=== PATIENT | male | born 2000 | race Caucasian/White ===

== ENCOUNTER 2023-02-06 00:12 | Emergency (ER) | payer BC, SELFPAY ==
[2023-02-06 00:21] VITALS: BMI 38.3
[2023-02-06 00:29] VITALS: BP 141/87; PULSE 86; RESP 16; TEMP 36.8; O2SAT 98
--- NOTE | 2023-02-06 01:20 | XRR_ITS ---
PROCEDURE INFORMATION: Exam: XR Lumbosacral Spine Exam date and time: 02/06/2023 1:24 AM Age: 22 years old Clinical indication: Patient HX: C/O low back pain TECHNIQUE: Imaging protocol: Radiologic exam of the lumbosacral spine. Views: 2 or 3 views. COMPARISON: No relevant prior studies available. FINDINGS: Bones/joints: There is mild anterior wedge deformity of the superior endplates of T12 and L1 vertebral bodies. Soft tissues: Unremarkable. XR/XR lumbar spine 2-3V* [id number] IMPRESSION: Mild anterior wedge deformity of the superior endplates T12 and L1 bodies that appear chronic.
--- NOTE | 2023-02-06 01:30 | ED_ITS ---
HPI - Back Pain/Injury General: Chief Complaint: Back Pain/Injury Stated Complaint: Both Knee Pain Time Seen by Provider: 02/06/23 00:45 History of Present Illness: Patient presents to the ER with complaints of low back pain. Patient states about 1-1/2 weeks ago he was bending over picking up a mat and felt a pop. Patient states his pain seems to be worse at night. He called Dr. Richey his PCP and has appointment for Thursday. He does take Tylenol and it does help. The pain sometimes runs down his right leg. Sometimes his legs are little weaker than normal. Patient does have dwarfism. The only surgery the patient has had his ear tubes. Patient does not have a an orthopedic doctor. Review of Systems General: Reports: 10 or more systems reviewed and unremarkable except in HPI and below PFSH ED PFSH: Medical History Dwarfism History of ear infection Surgical History Hx of adenoidectomy Hx of tympanostomy tubes Physical Exam Const: COMMON NORMALS: no acute distress, average body habitus, patient oriented x3, no limitations, healthy appearing, alert and well nourished HENMT: COMMON NORMALS: normocephalic, atraumatic, hearing grossly normal bilaterally, external ears normal, Normal external nose present, moist oral mucous membranes and oropharynx normal HEAD & SCALP: normocephalic and atraumatic NOSE: Normal external nose present EXTERNAL EAR: Yes external ears normal Neck/C-Spine: COMMON NORMALS: no JVD Chest: COMMONS NORMALS: normal inspection of the chest and normal palpation of entire chest wall Resp: COMMON NORMALS: normal respiratory effort, No retractions, No use of accessory muscles and clear to auscultation bilaterally AUSCULTATION: clear to auscultation bilaterally Cardio: COMMON NORMALS: no JVD, regular rate, regular rhythm, S1 normal heart sound present, S2 normal heart sound present, No gallops present (Cardio), No clicks present (Cardio), No murmurs present (Cardio) and No rub (Cardio) RATE: regular rate RHYTHM: regular rhythm HEART SOUNDS: S1 normal heart sound present and S2 normal heart sound present GI: COMMON NORMALS: Normal to inspection, nondistended, normoactive bowel sounds present, Soft to palpation, non-tender, No hepatosplenomegaly present and no masses PALPATION: Yes Soft to palpation and Yes No hepatosplenomegaly present Neuro: COMMON NORMALS: patient oriented x3 SENSORIUM/ORIENTATION: Yes alert Course Vital Signs: Vital signs: Vital Signs Temperature 98.3 F 02/06/23 00:29 Pulse Rate 75 02/06/23 01:40 Respiratory Rate 18 02/06/23 01:40 Blood Pressure 141/87 02/06/23 00:29 Pulse Oximetry 95 02/06/23 01:40 Oxygen Delivery Me thod Room Air 02/06/23 01:40 MDM - Back Pain/Injury Medical Decision Making Patient x-rays done which showed mild anterior wedge deformity of the endplates of T12 and L1. With patient and his family member they will follow-up with their PCP and be referred to a neurosurgeon in [place]. Patient be discharged from the ER. Patient declined any pain medicine at this time. Differential Diagnosis Likely strain of lumbar region; Unlikely lumbar radiculopathy, sciatica, renal colic, pyelonephritis, thoracic back pain, AAA or discitis Medical Records I reviewed the patient's medical records. Labs I reviewed the patient's lab results. Radiology Impressions Lumbar Spine X-Ray 02/06/23 01:20 IMPRESSION: Mild anterior wedge deformity of the superior endplates T12 and L1 bodies that appear chronic. All radiology interpretation(s) finalized by discharge Discharge Plan Discharge Patient Disposition: Home Clinical Impression: Muscle weakness Low back pain Qualifiers: Chronicity: acute Back pain laterality: unspecified Sciatica presence: unspecified whether sciatica present Qualified Code(s): M54.50 - Low back pain, unspecified Closed wedge compression fracture of T12 vertebra Qualifiers: Encounter type: initial encounter Qualified Code(s): S22.080A - Wedge co mpression fracture of T11-T12 vertebra, initial encounter for closed fracture Closed compression fracture of L1 vertebra Qualifiers: Encounter type: initial encounter Qualified Code(s): S32.010A - Wedge compression fracture of first lumbar vertebra, initial encounter for closed fracture Condition: Stable Prescriptions: No Action No Known Home Medications Discharge Orders: Discharge ED (Routine); Ordered 02/06/23 Ordered By: Neri Oglesby Referrals: Hugh Rodrigues MD [Primary Care Provider] - Patient Instructions: Fractures - Compression, Acute Low Back Pain (ED), Weakness (ED) Activity Restrictions/Additional Instructions: please follow-up with Dr. Rodrigues and Dr. Hodge's office as we talked. You may benefit from a referral to the neurosurgeon in [place]. Coding Level of Care Code ED Retirement Benefits Specialist for Mariam Guerrero
[2023-02-06 01:40] VITALS: PULSE 75; RESP 18; O2SAT 95
[2023-02-06 03:05] VITALS: PULSE 84; RESP 18; O2SAT 98
== END 2023-02-06 03:12 | disposition home or self-care (01) ==
PROVIDERS: Emergency Provider Emergency Medicine; PCP Family Medicine
DX: S22.080A Wedge compression fracture of T11-T12 vertebra, initial encounter for closed fracture (principal); S32.010A Wedge compression fracture of first lumbar vertebra, initial encounter for closed fracture; M62.81 Muscle weakness (generalized); E34.328 Other genetic causes of short stature; X50.1XXA Overexertion from prolonged static or awkward postures, initial encounter
CPT/HCPCS: 72100; 99283

== ENCOUNTER 2024-02-02 01:30 | Emergency (ER) | payer BC, SELFPAY ==
[2024-02-02 02:02] VITALS: BP 158/104; PULSE 105; RESP 18; TEMP 36.9; O2SAT 97; BMI 33.7
--- NOTE | 2024-02-02 02:44 | ED_ITS ---
HPI - Extremity Problem General: Chief complaint: Extremity Problem,Nontraumatic Stated complaint: right knee pain, lower back pain Time Seen by Provider: 02/02/24 02:34 History of Present Illness: Presents to the ER with right knee pain on the kneecap. Patient scheduled an urgent week and has pain ever since. Patient is able ambulate. Pain intermittently radiates up into the low back of the posterior leg. This is different than his previous low back pain that radiated from the back down to the knee. Patient has been using [id number] Tylenol and Motrin has seemed to help. Related Data Previous Rx's Medication Instructions Recorded carbamide peroxide 6.5 % ear drops 5 drp otic (ear) DAILY 4 days #15 10/08/23 (Debrox) mL cefdinir 300 mg capsule 300 mg PO BID 5 days #10 caps 10/08/23 meloxicam 15 mg tablet 15 mg PO DAILY #14 tabs 02/02/24 Allergies Allergy/AdvReac Type Severity Reaction Status Date / Time amoxicillin Allergy Intermediate rash Verified 10/08/23 16:24 Review of Systems General: Reports: 10 or more systems reviewed and unremarkable except in HPI and below PFSH ED PFSH: Medical History History of ear infection Dwarfism Surgical History Hx of adenoidectomy Hx of tympanostomy tubes Social History Smoking and tobacco/nicotine status: unknown if used tobacco/nicotine Physical Exam Const: COMMON NORMALS: no acute distress, average body habitus, patient oriented x3, no limitations, healthy appearing, alert and well nourished HENMT: COMMON NORMALS: normocephalic, atraumatic, hearing grossly normal bilaterally, external ears normal, Normal external nose present and moist oral mucous membranes HEAD & SCALP: normocephalic and atraumatic NOSE: Normal external nose present EXTERNAL EAR: Yes external ears normal Neck/C-Spine: COMMON NORMALS: no JVD Chest: COMMONS NORMALS: normal inspection of the chest and normal palpation of entire chest wall Resp: COMMON NORMALS: normal respiratory effort, No retractions, No use of accessory muscles and clear to auscultation bilaterally AUSCULTATION: clear to auscultation bilaterally Cardio: COMMON NORMALS: no JVD, regular rate, regular rhythm, S1 normal heart sound present, S2 normal heart sound present, No gallops present (Cardio), No clicks present (Cardio), No murmurs present (Cardio) and No rub (Cardio) RATE: regular rate RHYTHM: regular rhythm HEART SOUNDS: S1 normal heart sound present and S2 normal heart sound present GI: COMMON NORMALS: Normal to inspection, nondistended, normoactive bowel sounds present, Soft to palpation, non-tender, No hepatosplenomegaly present and no masses PALPATION: Yes Soft to palpation and Yes No hepatosplenomegaly present Extremity: NARRATIVE EXTREMITY EXAM: Negative pain with palpation right knee, full range of motion, no obvious crepitus deformity Neuro: COMMON NORMALS: patient oriented x3 SENSORIUM/ORIENTATION: Yes alert Course Vital Signs: Vital signs: Vital Signs Temperature 98.4 F 02/02/24 02:02 Pulse Rate 105 H 02/02/24 02:02 Respiratory Rate 18 02/02/24 02:02 Blood Pressure 158/104 02/02/24 02:02 Pulse Oximetry 97 02/02/24 02:02 Oxygen Delivery Me thod Room Air 02/02/24 02:02 MDM - Extremity (Nontraumatic) Medical Decision Making Patient appears to have overuse syndrome her right knee, we will prescribe the p atient Mobic and give him 1 week off of work at his request. Medical Records I reviewed the patient's medical records. Lab Data I reviewed the patient's lab results. No radiology studies performed this visit Discharge Plan Discharge Patient Disposition: Home Clinical Impression: Acute pain of right knee Condition: Stable Prescriptions: New meloxicam 15 mg tablet 15 mg PO DAILY Qty: 14 0RF No Action cefdinir 300 mg capsule 300 mg PO BID 5 Days Qty: 10 0RF Debrox 6.5 % drops 5 drp otic (ear) DAILY 4 Days Qty: 15 0RF Discharge Orders: Discharge ED (Routine); Ordered 02/02/24 Ordered By: Neri Oglesby Referrals: Hugh Rodrigues MD [Primary Care Provider] - 1 week Patient Instructions: Knee Pain (ED) Activity Restrictions/Additional Instructions: Meloxicam is been prescribed she has an anti-inflammatory that is 1 pill once a day. Please take it as directed. Please try to limit the use of the knee for the next week. Please follow-up with your PCP within the next week as needed. Stand Alone Forms: Work/School Release Coding Level of Care Code ED Maintenance Service Dispatcher for Mariam Guerrero
[2024-02-02] MEDS: meloxicam 7.5 mg tablet 15 MG PO (03:08)
[2024-02-02 03:17] VITALS: BP 143/98; PULSE 108; O2SAT 95
== END 2024-02-02 03:18 | disposition home or self-care (01) ==
PROVIDERS: Emergency Provider Emergency Medicine; PCP Family Medicine
DX: M25.561 Pain in right knee (principal)
CPT/HCPCS: 99283

== ENCOUNTER 2024-02-02 13:43 | Emergency (ER) | payer BC, SELFPAY ==
--- NOTE | 2024-02-02 13:45 | XR_ITS ---
WS: [id number] Exam: XR knee RT 3V* [id number] Date/Time of Exam: 02/02/2024 2:05 PM Reason For Exam: pain No acute fracture or dislocation. The joint compartments are preserved. There is bowing of the fibula . Anomalous bone formation of the distal femur and tibial plateaus. XR/XR knee RT 3V* [id number] IMPRESSION: 1. No fracture identified. 2. 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
[2024-02-02 13:57] VITALS: BP 156/89; PULSE 110; RESP 16; TEMP 36.6; O2SAT 98
--- NOTE | 2024-02-02 15:05 | ED_ITS ---
HPI - Extremity Problem General: Chief complaint: Extremity Problem,Nontraumatic Stated complaint: Right knee pain Time Seen by Provider: 02/02/24 14:13 Source: patient and family Mode of arrival: ambulatory Limitations: no limitations History of Present Illness: Patient is a 23-year-old male with a history of dwarfism here along with presumably his mother and father for continued evaluation of right knee pain. He was seen earlier this morning/yesterday for same complaint. Patient states knee pain started following a concert out of town. Patient states he did dance at the concert but does not ever remember injuring the knee but states he noticed pain starting when he got back to his hotel room. Mother feels like he might be going through a growth spurt with his dwarfism as he had similar symptoms a year or so ago that was related to this. He has not noticed any swelling to the extremity or knee. No redness or warmth. He is not having any calf pain. Patient does have some somewhat chronic lower back pain but he is not complaining of pain here today or radicular symptoms. Patient states he is not having any knee pain at rest and only has pain with ambulation. MD Complaint: joint pain Onset (ago): day(s) Pain Consistency: constant Location: right and knee Radiation: none Relieving factors: immobilization Exacerbating factors: weight bearing and walking Associated symptoms: Reports no associated symptoms; Deny chest pain or fever(s) Related Data Previous Rx's Medication Instructions Recorded carbamide peroxide 6.5 % ear drops 5 drp otic (ear) DAILY 4 days #15 10/08/23 (Debrox) mL cefdinir 300 mg capsule 300 mg PO BID 5 days #10 caps 10/08/23 cyclobenzaprine 10 mg tablet 10 mg PO TID #14 tabs 02/02/24 meloxicam 15 mg tablet 15 mg PO DAILY #14 tabs 02/02/24 tramadol 50 mg tablet 50 mg PO Q6H PRN pain #14 tabs 02/02/24 Allergies Allergy/AdvReac Type Severity Reaction Status Date / Time amoxicillin Allergy Intermediate rash Verified 10/08/23 16:24 Review of Systems Const: Denies: fever(s), chills, body aches, fatigue or malaise Card: Denies: chest pain Resp: Denies: dyspnea Musc: Reports: joint pain (R knee); Denies: back pain, extremity pain, extremity swelling, joint swelling, joint warmth, joint stiffness or limited range of motion Neuro: Reports: difficulty walking (secondary to R knee pain); Denies: numbness in extremities, weakness in extremities or sensory changes PFSH ED PFSH: Medical History History of ear infection Dwarfism Surgical History Hx of adenoidectomy Hx of tympanostomy tubes Social History Smoking and tobacco/nicotine status: unknown if used tobacco/nicotine Physical Exam Const: COMMON NORMALS: no acute distress, patient oriented x3, no limitations, alert and well nourished GENERAL APPEARANCE: cooperative ORIENTATION/CONSCIOUSNESS: Yes awake, Yes oriented to person, Yes oriented to place and Yes oriented to time Extremity: COMMON NORMALS: normal to inspection, capillary refill normal and no calf tenderness GENERAL: Yes normal exam except as noted RIGHT LOWER EXTREMITY: Yes knee joint Right knee: Yes ROM (normal) and Yes neurovascular exam (normal) OTHER: while patient seated, I am able to perform full range of motion as well as varus and valgus stresses to the knee without eliciting any discomfort; the knee is not swollen or erythematous; no patellar subluxations; he has no popliteal discomfort or pain into his calf or swelling here; extremity is neurovascularly intact he complaints of patellar discomfort while bearing weight on the extremity; can ambulate with a walker Neuro: COMMON NORMALS: patient oriented x3, moves all extremities, no focal motor deficits and no sensory deficits noted SENSORIUM/ORIENTATION: Yes alert, Yes oriented to person, Yes oriented to place and Yes oriented to time Course Vital Signs: Vital signs: Vital Signs Temperature 97.8 F 02/02/24 13:57 Pulse Rate 108 H 02/02/24 15:27 Respiratory Rate 16 02/02/24 15:27 Blood Pressure 156/109 02/02/24 15:27 Pulse Oximetry 98 02/02/24 15:27 Oxygen Delivery Me thod Room Air 02/02/24 13:57 MDM - Extremity (Nontraumatic) Medical Decision Making XR unremarkable. 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 Suspect he may have strained his patellar tendon possibly while dancing at the concert. Recommend he follow-up with his primary care provider. He is ambulatory with a walker. Will CRISTIN wrap. Mother is requesting a specialist due to his dwarfism. I will try to have case management check with [facility] as mother believes there may be a physician there who specializes in neuro/orthopedic anomalies. Medical Records I reviewed the patient's medical records. Lab Data Radiology Impressions Knee X-Ray 02/02/24 13:45 IMPRESSION: 1. No fracture identified. 2. 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 All radiology interpretation(s) finalized by discharge Discharge Plan Discharge Patient Disposition: Home Clinical Impression: Acute pain of right knee Condition: Stable Prescriptions: New cyclobenzaprine 10 mg tablet 10 mg PO TID Qty: 14 0RF tramadol 50 mg tablet 50 mg PO Q6H PRN (Reason: pain) Qty: 14 0RF Continued meloxicam 15 mg tablet 15 mg PO DAILY Qty: 14 0RF No Action cefdinir 300 mg capsule 300 mg PO BID 5 Days Qty: 10 0RF Debrox 6.5 % drops 5 drp otic (ear) DAILY 4 Days Qty: 15 0RF Discharge Orders: Discharge ED (Routine); Ordered 02/02/24 Ordered By: Carolyn Tatum Referrals: Hugh Rodrigues MD [Primary Care Provider] - Patient Instructions: Opioid Safety, Pain Management Activity Restrictions/Additional Instructions: As we discussed, I think it is reasonable to follow-up with his primary care provider. I did go ahead and place a case management referral to [facility] to see if we can find Masoud a specialist regarding his dwarfism. Coding Level of Care Code ED Applied Computer Science Professor for Mariam Guerrero
[2024-02-02 15:27] VITALS: BP 156/109; PULSE 108; RESP 16; O2SAT 98
--- NOTE | 2024-02-05 00:39 | DCPLANNER ---
Message sent to PCP for follow up and referral to dwarfism specialist.
--- NOTE | 2024-02-05 12:44 | DCPLANNER ---
Referral to [facility] was faxed for ortho. Fax number [phone]
--- NOTE | 2024-02-08 10:03 | DCPLANNER ---
[facility] transfer sent back a faxed Sheet : Stating, Patient's insurance plan is out on network with there healthcare system. Please contact patient's insurance for in network providers. Will send all this to Dr Caban office.
== END 2024-02-02 15:30 | disposition home or self-care (01) ==
PROVIDERS: Emergency Provider Physician Assistant; PCP Family Medicine
DX: M25.561 Pain in right knee (principal)
CPT/HCPCS: 73562; 99283